=== PATIENT | male | born 1975 | race Two or more races ===

== ENCOUNTER 2017-05-16 21:52 | Emergency (ER) | payer OTHER ==
[2017-05-16 22:01] VITALS: BP 178/91
[2017-05-16] MEDS ORDERED: methylPREDNISolone 125 MG* 2 ML VIAL IV ONE (22:42)
[2017-05-16] MEDS ORDERED: diPHENhydraMINE PO* 50 MG PO ONE (22:42)
[2017-05-16] MEDS ORDERED: Famotidine TAB* 20 MG PO ONE (22:43)
[2017-05-16] MEDS ORDERED: methylPREDNISolone 125 MG* 2 ML VIAL IM ONE (22:56)
--- NOTE | 2017-06-10 15:07 | UC ---
Livia Guerra Rebecca, scribed for Vera Gross MD on 05/16/17 at 2235 . Skin Complaint HPI - HPI Summary HPI Summary: Pt is a 41 y/o M who presents to [facility] c/o diffuse rash. Sx began 2 weeks ago and have been constant since onset. Rash is characterized as pruritic with associated pain being 7/10, described as burning. Sx aggravated and alleviated by nothing, unchanged by Benadryl and calamine lotion. - History of Current Complaint Chief Complaint: UCSkin Time Seen by Provider: 05/16/17 22:31 Stated Complaint: RASH Hx Obtained From: Patient Onset/Duration: Lasting Weeks - 2 weeks, Still Present Timing: Constant Current Severity: Moderate Pain Intensity: 7 Pain Scale Used: 0-10 Numeric Location: Diffuse Character: Pruritus Aggravating: Nothing Alleviating: Nothing - Allergy/Home Medications Allergies/Adverse Reactions: Allergies Allergy/AdvReac Type Severity Reaction Status Date / Time No Known Allergies Allergy Verified 06/10/17 13:05 Home Medications: Home Medications diPHENhydraMINE PO* [Benadryl PO 25 MG TAB*] 25 mg PO Q6HR 05/16/17 [History Confirmed 06/10/17] Review of Systems Constitutional: Negative Skin: Rash - Diffuse, pruritic rash Eyes: Negative ENT: Negative Respiratory: Negative Cardiovascular: Negative Gastrointestinal: Negative Genitourinary: Negative Motor: Negative Neurovascular: Negative Musculoskeletal: Negative Neurological: Negative Psychological: Negative All Other Systems Reviewed And Are Negative: Yes PMH/Surg Hx/FS Hx/Imm Hx - Additional Past Medical History Additional PMH: Hx herniated discs Hx chronic back pain - Surgical History Surgical History: None - Family History Known Family History: Positive: Other - Kidney stones - Social History Alcohol Use: None Substance Use Type: None Smoking Status (MU): Heavy Every Day Tobacco Smoker Physical Exam Triage Information Reviewed: Yes Appearance: Well-Appearing, Well-Nourished Vital Signs: Initial Vital Signs Temp 98.5 F 05/16/17 21:57 Pulse 87 05/16/17 21:57 Resp 20 05/16/17 21:57 BP 178/91 05/16/17 21:57 Pulse Ox 99 05/16/17 21:57 Vital Signs Reviewed: Yes Eye Exam: Normal ENT Exam: Normal Neck exam: Normal Neck: Positive: Supple, Nontender Respiratory Exam: Normal Cardiovascular Exam: Normal Abdominal Exam: Normal Musculoskeletal Exam: Normal Neurological Exam: Normal Psychological Exam: Normal Skin Exam: Other - nondiaphoretic. Scattered dermatitis, raised. C/w contact and / or reactive dermatitis. No evidence cellulitis perse. Course/Dx - Course Course Of Treatment: D/w coa and tx plan with pt. Questions answered as posed. F/u pcp, routine. Seek medical attention for worse or new problems in the meantime. - Diagnoses Provider Diagnoses: Acute dermatitis Discharge - Discharge Plan Condition: Stable Disposition: HOME Patient Education Materials: Contact Dermatitis (ED) Forms: *Work Release Referrals: Matthew Horn MD [Primary Care Provider] - The documentation as recorded by the Livia gaines Rebecca accurately reflects the service I personally performed and the decisions made by me, Vera Gross MD.
== END 2017-05-16 23:09 | disposition home or self-care (01) ==
LOC: UCEAST 21:52
DX: L30.9 Dermatitis, unspecified (principal); F17.210 Nicotine dependence, cigarettes, uncomplicated
CPT/HCPCS: 96372; 99212; A9270-GY; G0463; J2930

== ENCOUNTER 2017-06-10 12:50 | Emergency (ER) | payer OTHER ==
[2017-06-10 13:10] VITALS: BP 99/66
--- NOTE | 2017-06-10 13:26 | UC ---
Skin Complaint HPI - HPI Summary HPI Summary: Patient presents with CC of poison oak diffusely over extremities and neck. He has had this before as he works outside in the [employer]. He was seen here last month for the same issue, prescribed prednisone, famotidine, triamcinolone .1% and benadryl with relief. After discontinuing the medications, the rash began to appear again. The rash is diffuse, slightly raised pruritic erythematous lesions over extremities, neck and hands. Hx of dermatitis and eczema. Symptoms worsen when exposed to poison oak. He has continued to try at home creams without relief. The lesions are diffuse, sparing the groin and face. Denies any other health problems, takes no medications. - History of Current Complaint Chief Complaint: UCSkin Time Seen by Provider: 06/10/17 13:15 Stated Complaint: RASH Hx Obtained From: Patient Onset/Duration: Gradual Onset Skin Exposure Onset/Duration: Weeks Ago Timing: Constant Onset Severity: Moderate Current Severity: Moderate Pain Intensity: 5 Pain Scale Used: 0-10 Numeric Location: Diffuse Character: Pruritus, Pain, Redness, Raised, Painful Aggravating: Nothing Alleviating: OTC Meds, Other - steroids Associated Signs & Symptoms: Positive: Negative Related History: Possible Reaction to: Environmental Exposure - Allergy/Home Medications Allergies/Adverse Reactions: Allergies Allergy/AdvReac Type Severity Reaction Status Date / Time No Known Allergies Allergy Verified 06/10/17 13:05 Review of Systems Constitutional: Negative Skin: Rash Eyes: Negative Respiratory: Negative Cardiovascular: Negative Motor: Negative Neurovascular: Negative Musculoskeletal: Negative Psychological: Negative All Other Systems Reviewed And Are Negative: Yes PMH/Surg Hx/FS Hx/Imm Hx Previously Healthy: Yes - Surgical History Surgical History: None - Social History Occupation: Employed Full-time Lives: With Family Alcohol Use: None Substance Use Type: None Smoking Status (MU): Heavy Every Day Tobacco Smoker Physical Exam Triage Information Reviewed: Yes Appearance: Well-Appearing, Well-Nourished Vital Signs: Initial Vital Signs Temp 97 F 06/10/17 13:07 Pulse 94 06/10/17 13:07 Resp 15 06/10/17 13:07 BP 99/66 06/10/17 13:07 Pulse Ox 100 06/10/17 13:07 Vital Signs Reviewed: Yes Eye Exam: Normal Eyes: Positive: Conjunctiva Clear Neck exam: Normal Neck: Positive: Supple, Nontender, No Lymphadenopathy Respiratory Exam: Normal Respiratory: Positive: Chest non-tender, Lungs clear Cardiovascular Exam: Normal Cardiovascular: Positive: RRR Musculoskeletal Exam: Normal Musculoskeletal: Positive: Strength Intact Neurological Exam: Normal Neurological: Positive: Alert Psychological: Positive: Normal Response To Family, Age Appropriate Behavior Skin: Positive: significant lesion(s) - diffusely over lower extremities, hands , neck, Other Course/Dx - Course Course Of Treatment: Patient evaluated for possible poison oak exposure. Recent exposure last month as well which improved with rx medications. He comes again today d/t another exposure and is stating he will need a refill on his medications. He is prescribed prednisone, topical creams (both triamcinalone .5% for knees and legs and upper extremities where patches are diffuse; and .1% over neck where skin is thinner); patient agrees with plan and OK for discharge. He is encouraged to follow up with his PCP regarding his eczema and dermatitis dx. - Differential Diagnoses - Skin Complaint Differential Diagnoses: Contact Dermatitis, Poison [place], Poison [place] - Diagnoses Provider Diagnoses: poison oak Discharge - Discharge Plan Condition: Stable Disposition: HOME Prescriptions: Triamcinolone 0.1% CREAM(NF) [Kenalog 0.1% Cream (NF)] 1 applic TOPICAL TID #1 applic Triamcinolone 0.5% CREAM(NF) [Triamcinolone 0.5% CREAM*] 1 applic TOPICAL TID # 1 tube predniSONE TAB* [Deltasone TAB*] 10 mg PO DAILY #20 tab Patient Education Materials: Triamcinolone (On the skin), Poison [place] (ED), Cold Compress or Soak (ED) Forms: *Work Release Referrals: Matthew Horn MD [Primary Care Provider] - Additional Instructions: Take Benadryl 25mg at bedtime Famotidine during the day time Triamcinolone .1% to neck Triamcinolone .5% to knees, hands, and extremities - sparing the face and groin area Prednisone as prescribed x 5 days - tapering dose. Take in the morning.
== END 2017-06-10 13:30 | disposition home or self-care (01) ==
LOC: UCEAST 12:50
DX: L23.7 Allergic contact dermatitis due to plants, except food (principal)
CPT/HCPCS: 99212; G0463

== ENCOUNTER → 2018-08-06 11:17 | Emergency (ER) | payer OTHER ==
[~2018-08-06 11:17] MED LIST: Lidocaine 2% EPI 1:200000 MPF*10-20 ML VIAL ONE; NS 0.9% 1000 ML* 1,000 ML IV ONE; Piperacillin/Tazobac ADVAN(*) 3.375 GM in NS 0.9% 100 ML* 100 ML IVPB ONE; Vancomycin(*) 1,000 MG BAG/ADDV IVPB ONE; Vancomycin(*) 1,250 MG in NS 0.9% 250 ML* 250 ML IVPB ONE
[2018-08-06 12:10] VITALS: BP 135/82
--- NOTE | 2018-08-06 12:25 | ED ---
Skin Complaint - HPI Summary HPI Summary: Pt. is a 42 y.o male who was referred to the ER from for possible neck abscess. Pt. denies past medical hx. He states that he noticed a small red bump on the right side of his neckk about 2 weeks ago that has progressively gotten larger. He state he took a few doses of an old antibx and it seemed to be improving until today when he noticed redness spreading to his chest wall. He admits to chills. Denies CP, SOB, N/V. Touching affected area and rotating neck makes sxs worse. Nothing makes symptoms better. Symptoms are moderate in severity. He notes hx of MRSA infections. Denies IV drug use. - History of Current Complaint Chief Complaint: EDRashSkinAbscess Time Seen by Provider: 08/06/18 11:49 Stated Complaint: ABSESS ON RT SIDE OF NECK Hx Obtained From: Patient Pain Intensity: 10 - Allergy/Home Medications Allergies/Adverse Reactions: Allergies Allergy/AdvReac Type Severity Reaction Status Date / Time latex Allergy Rash Verified 08/07/18 07:06 tomato Allergy Anaphylatic Verified 08/07/18 07:07 Shock PMH/Surg Hx/FS Hx/Imm Hx Previously Healthy: Yes Endocrine/Hematology History: Denies: Hx Diabetes, Hx Thyroid Disease Cardiovascular History: Denies: Hx Hypertension, Hx Pacemaker/ICD Respiratory History: Denies: Hx Asthma, Hx Chronic Obstructive Pulmonary Disease (COPD) GI History: Denies: Hx Ulcer Sensory History: Denies: Hx Hearing Aid Neurological History: Reports: Other Neuro Impairments/Disorders - hx of herniated discs Psychiatric History: Denies: Hx Panic Disorder Infectious Disease History: Yes Infectious Disease History: Reports: Hx of Known/Suspected MRSA Denies: Hx Clostridium Difficile, Hx Hepatitis, Hx Human Immunodeficiency Virus (HIV), Hx Shingles, Hx Tuberculosis, Hx Known/Suspected VRE, Hx Known/ Suspected VRSA, History Other Infectious Disease, Traveled Outside the [place] in Last 30 Days - Family History Known Family History: Positive: None - Pt denies FMHX - Social History Occupation: Employed Full-time Lives: With Family Alcohol Use: None Substance Use Type: Reports: None Smoking Status (MU): Heavy Every Day Tobacco Smoker Review of Systems Positive: Chills Cardiovascular: Negative Respiratory: Negative Gastrointestinal: Negative Positive: Other - redness and swelling to right side of neck All Other Systems Reviewed And Are Negative: Yes Physical Exam Triage Information Reviewed: Yes Vital Signs On Initial Exam: Initial Vitals Temp Pulse Resp BP Pulse Ox 99.9 F 39 16 146/95 92 08/06/18 11:25 08/06/18 11:25 08/06/18 11:25 08/06/18 11:25 08/06/18 11:25 Appearance: Positive: Well-Appearing - Pt. sitting on bed in NAD. Obvious mass noted to right lateral neck Skin: Positive: Warm, Dry Head/Face: Positive: Normal Head/Face Inspection Eyes: Positive: Normal, EOMI Neck: Positive: Supple, Other: - Noted to the right lateral neck there is a very large area of erythema and edema. Slightly fluctuant and tender to touch. Surrounding erythema extends to anterior chest wall. Respiratory/Lung Sounds: Positive: Clear to Auscultation, Breath Sounds Present Neurological: Positive: Normal, CN Intact II-III Diagnostics - Vital Signs Vital Signs Temp Pulse Resp BP Pulse Ox 08/06/18 12:00 102 98 08/06/18 11:49 135/82 08/06/18 11:48 92 97 08/06/18 11:25 99.9 F 39 16 146/95 92 - Laboratory Lab Statement: Any lab studies that have been ordered have been reviewed, and results considered in the medical decision making process. Course/Dx - Course Course Of Treatment: Pt. presenting with an impressive likely abscess and cellulitis to his lateral neck. Low grade fever. Pt. overall is nontoxic appearing. After initially examining pt. I informed him he will need blood work , imaging, IV antibx and admission to the hospital for likely surgical consult. Pt. states that he is the only one in family with a car and his kids need picked up from school. Pt. states he will need to leave to give his car to another family/friend. Pt. wishes to sign out AMA. Discussed with pt. that this infection could lead to sepsis, air way compromise and . Pt. has decision making capacity and understands the risk. Pt. states that he will return later today for treatment once he gets his matters in order. Signed out AMA. - Differential Diagnoses - Skin Complaint Differential Diagnoses: Abscess, Cellulitis, MRSA - Diagnoses Provider Diagnoses: Cellulitis and abscess of neck Discharge - Sign-Out/Discharge Documenting (check all that apply): Patient Departure - Discharge Plan Condition: Stable Disposition: AGAINST MEDICAL ADVICE Referrals: Matthew Horn MD [Primary Care Provider] - - Billing Disposition and Condition Condition: STABLE Disposition: Against Medical Advice
== END | disposition left against medical advice (07) ==
LOC: ED 11:17
DX: L03.221 Cellulitis of neck (principal); Z53.21 Procedure and treatment not carried out due to patient leaving prior to being seen by health care provider
CPT/HCPCS: 93005; 96361; 96374; 99283; J2543; J3370

== ENCOUNTER 2018-08-06 16:32 | Observation (INO) | payer OTHER ==
[2018-08-06] MEDS ORDERED: Ketorolac INJ* 30 MG/ML 1 ML VIAL IV PUSH ONE (17:46)
[2018-08-06] MEDS ORDERED: Morphine VIAL* 4 MG/ML VIAL (1 ml vial) IV ONE (17:46)
[2018-08-06] MEDS ORDERED: NS 0.9% 1000 ML* 2,000 ML IV ONE (17:47)
[2018-08-06] MEDS ORDERED: Morphine INJ* 4 MG/ML 1 ML SYRINGE (NEW SYRINGE VERSION) ONE (18:01)
[2018-08-06 18:07] LABS: ABS Basophils 0 10^3/ul (0-0.2); ABS Eosinophils 0.2 10^3/ul (0-0.6); ABS Lymphocytes 0.9 10^3/ul (1.0-4.8); ABS Monocytes 1.1 10^3/ul (0-0.8); ABS Nucleated RBC 0 10^3/ul; Eosinophil % 1.9 % (0-6); Hematocrit 40 % (42-52); Hemoglobin 13.8 g/dl (14.0-18.0); Lymphocyte % 8.9 % (25-47); Mean Corpuscular HGB Conc 34 g/dl (31-36); Mean Corpuscular Hemoglobin 33 pg (27-31); Mean Corpuscular Volume 95 fL (80-94); Mean Platelet Volume 7.9 um3 (7.4-10.4); Nucleated Red Blood Cells % 0; Platelet Count 279 10^3/ul (150-450); Red Blood Count 4.22 10^6/ul (4.00-5.40); Red Cell Distribution Width 14 % (10.5-15); White Blood Count 10.1 10^3/ul (3.5-10.8)
[2018-08-06 18:23] LABS: EGFR Non-African American 85.5 (>60)
[2018-08-06] MEDS ORDERED: Vancomycin(*) 1,000 MG in NS 0.9% 250 ML* 250 ML IVPB ONE (18:47)
[2018-08-06] MEDS ORDERED: cefTRIAXone(*) 1 GM in NS 0.9% 50 ML* 50 ML IVPB ONE (18:47)
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
--- NOTE | 2018-08-06 19:10 | RAD ---
EXAM: US Soft Tissues Head and Neck, Thyroid CLINICAL HISTORY: 42 years old, male; Pain; Neck pain; Additional info: Severe cellulitis r neck, ? abscessed TECHNIQUE: Real-time ultrasound scan of the thyroid gland and soft tissues of the neck with image documentation. COMPARISON: No relevant prior studies available. FINDINGS: Left thyroid lobe: Unremarkable. No enlarged or calcified nodules. Right thyroid lobe: Unremarkable. No enlarged or calcified nodules. Isthmus: Unremarkable. No enlarged or calcified nodules. Lymph nodes: Unremarkable. No lymphadenopathy. Other findings: Complex apparent fluid collection measuring approximately 6.1 x 2.4 x 3.1 cm right lateral neck with some surrounding hyperemia suggesting abscess. Underlying lesion is not excluded here. IMPRESSION: Complex apparent fluid collection measuring approximately 6.1 x 2.4 x 3.1 cm right lateral neck with some surrounding hyperemia suggesting abscess. Underlying lesion is not excluded here. To contact [facility] with a general question: [facility] - [phone] For direct physician to physician contact: Physician Hotline - [phone] [facility] ([facility] Facility ID #[id number])
[2018-08-06] MEDS ORDERED: Acetaminophen TAB* 325 MG PO PRN (20:00)
[2018-08-06] MEDS ORDERED: Morphine INJ* 4 MG/ML 1 ML SYRINGE (NEW SYRINGE VERSION) IV PRN (20:01)
[2018-08-06] MEDS ORDERED: Ondansetron INJ* 2 MG/ML VIAL IV PRN (20:01)
[2018-08-06] MEDS ORDERED: oxyCODONE/Acetamin 5/325 MG* TAB PO PRN (20:02)
--- NOTE | 2018-08-06 21:24 | HP ---
HOSPITAL MEDICINE HISTORY AND PHYSICAL: DATE OF ADMISSION: 08/06/18 PRIMARY CARE PHYSICIAN: Dr. Matthew Horn. ATTENDING PHYSICIAN: Dr. Luzma Goodman * (dictation provided by Nadine Aburto NP ). CHIEF COMPLAINT: Right neck pain. HISTORY OF PRESENT ILLNESS: Mr. Monet is a 42-year-old male with a past medical history of MRSA and chronic back pain, who presents today to the hospital with concern for swelling, redness, and pain to his right neck. Mr. Monet states that these symptoms began about 2 weeks ago. He notes no trauma to the area. He sees no drainage from the area. His symptom has been enlarging knot to the right side of his neck that was very firm to palpation. It has associated erythema, which has been progressively increasing as has the pain. The patient presented to the urgent care and then to our emergency room today for evaluation. He denies any fevers at home. He has had no chest pain, no shortness of breath. He has been eating and drinking normally. He is having no difficulty swallowing, no difficulty breathing. In the emergency room, Mr. Monet was suspected to have a right neck abscess. He went on for a soft tissue ultrasound, which showed that there was a 6 x 2 x 3 cm right lateral neck fluid collection suspicious for an abscess. The ED physician was uncomfortable because of the location; therefore, Surgery has been consulted regarding incision and drainage. The patient is not septic. He has no leukocytosis, but does have tachycardia with a heart rate of 100 to 120. His blood pressure is in the 130s. PAST MEDICAL HISTORY: 1. History of MRSA to his legs. 2. History of chronic back pain after an accident. MEDICATIONS: No active current medications. ALLERGIES: No known drug allergies. FAMILY HISTORY: The patient reports his mother is alive and has history of emphysema related to long-term smoking. Father related to heart attack. SOCIAL HISTORY: The patient is pack-a-day smoker. He drinks alcohol once in a while. He denies any IV drug use. He states he does smoke marijuana occasionally. He states that his domestic female partner, Yuni, would be his healthcare proxy. REVIEW OF SYSTEMS: A 14-point review of systems was completed with Mr. Monet and all those not mentioned above were negative. PHYSICAL EXAMINATION GENERAL: Mr. Monet is sitting up in the bed. He is in no acute distress. VITAL SIGNS: Temperature 99.2, pulse rate 102, respiratory rate 24, O2 saturation 98% on room air, blood pressure 133/82. LUNGS: Clear to auscultation bilaterally with no accessory muscle use and good aeration. HEART: S1, S2. No murmur, rub, or gallop, and regular. ABDOMEN: Soft, nontender with bowel sounds positive x4. EXTREMITIES: No cyanosis. No edema. NEURO: He is alert. He is oriented x3. He moves all extremities equally. There is no facial asymmetry or focal weakness. Extraocular movements are intact. SKIN: The patient has swelling and erythema to his right lateral neck. The area is indurated and firm. There is erythema extending about group home up the neck and then down the chest and around the right nipple. This area has been demarcated with black line by nursing staff. DIAGNOSTIC STUDIES/LAB DATA: Again, the soft tissue ultrasound is read as follows: "Complex apparent fluid collection measuring approximately 6.1 x 2.4 x 3.1 cm right lateral neck with some surrounding hyperemia suggesting abscess. Underlying lesion is not excluded here." The patient's labs are as follows: Sodium 134, potassium 3.8, chloride 98, serum bicarbonate 29, BUN 11, creatinine 0.96, glucose 93. WBC is 7.1, hemoglobin 13.8, hematocrit 40, platelet count 279. Lactic acid 0.5. ASSESSMENT AND PLAN: Mr. Monet is a 42-year-old male with past medical history of methicillin-resistant Staphylococcus aureus infection to his leg, who presents today to the hospital with concern for an abscess to his right neck suspicious for methicillin-resistant Staphylococcus aureus infection. Our plans are for observation in the hospital for the followin. Sepsis secondary to right neck abscess. Dr. Acosta has been consulted from the surgical services team and he will be providing incision and drainage today. We will obtain a culture from that for Gram stain. The patient will be on clindamycin intravenously for IV antibiotic coverage given his history of methicillin-resistant Staphylococcus aureus and the fact that he has an abscess , this is very likely to be methicillin-resistant Staphylococcus aureus. We can broaden antibiotic coverage or amend it as necessary based on culture results. Again, the patient meets sepsis with minimal criteria of elevated respiratory rate and elevated heart rate. He has received intravenous fluids and antibiotics in the ED. We will continue with intravenous fluids. He is not hypotensive and his lactic acid is normal. The patient will have pain medication with oxycodone p.r.n. 2. DVT prophylaxis with SCDs. 3. Code status is full code. 4. Disposition: To medical floor. TIME SPENT: Approximately 60 minutes was spent on the admission of this patient , more than half the time spent with him at the bedside reviewing the events leading up to this hospitalization, performing the physical examination, and reviewing my plan of care. NADINE ABURTO, [place] [id number]/CPS #: [id number] [facility]
[2018-08-06] MEDS: NS 0.9% 1000 ML* 1,000 ML IV SCH (22:22)
[2018-08-06] MEDS: Clindamycin 600 MG IVPREMIX(* 600 MG/50 ML SDV IV SCH (22:25)
[2018-08-06 22:30] LABS: Urine Appearance Clear; Urine Blood Negative (Negative); Urine Color Yellow; Urine Ketones Trace (Negative); Urine Protein Negative (Negative); Urine Specific Gravity 1.014 (1.010-1.030); Urine Urobilinogen Positive (Negative)
[2018-08-06] MEDS: oxyCODONE/Acetamin 5/325 MG* TAB PO PRN (22:30)
[2018-08-06] MEDS: Morphine VIAL* 4 MG/ML VIAL (1 ml vial) IV PRN (23:49)
[2018-08-07] MEDS: Clindamycin 600 MG IVPREMIX(* 600 MG/50 ML SDV IV SCH ×4 (04:19→22:07)
[2018-08-07] MEDS: Morphine VIAL* 4 MG/ML VIAL (1 ml vial) IV PRN ×4 (06:05→22:07)
[2018-08-07 07:36] LABS: EGFR Non-African American 108.6 (>60)
[2018-08-07] MEDS: oxyCODONE/Acetamin 5/325 MG* TAB PO PRN ×3 (08:06→19:18)
[2018-08-07 08:11] LABS: ABS Basophils 0 10^3/ul (0-0.2); ABS Eosinophils 0.2 10^3/ul (0-0.6); ABS Lymphocytes 0.6 10^3/ul (1.0-4.8); ABS Monocytes 0.9 10^3/ul (0-0.8); ABS Neutrophils 5.1 10^3/ul (1.5-7.7); ABS Nucleated RBC 0 10^3/ul; Eosinophil % 2.6 % (0-6); Hematocrit 39 % (42-52); Hemoglobin 13.1 g/dl (14.0-18.0); Lymphocyte % 9.3 % (25-47); Mean Corpuscular HGB Conc 34 g/dl (31-36); Mean Corpuscular Hemoglobin 32 pg (27-31); Mean Corpuscular Volume 95 fL (80-94); Mean Platelet Volume 7.7 um3 (7.4-10.4); Nucleated Red Blood Cells % 0; Platelet Count 238 10^3/ul (150-450); Red Blood Count 4.06 10^6/ul (4.00-5.40); Red Cell Distribution Width 13 % (10.5-15); White Blood Count 6.8 10^3/ul (3.5-10.8)
[2018-08-07] MEDS ORDERED: Mouth Piece, Nicotine* 1 EACH CARTRIDGE INH PRN ×2 (08:14)
--- NOTE | 2018-08-07 10:00 | PN ---
Progress Note - Progress Note Date of Service: 08/07/18 SOAP: Subjective:pod#1 s/p I&D right neck abscess less pain since drained but still quite tender [] Objective:afeb;VSS;right neck with open wound draining pus,erythematous and indurated;tender wound irrigated with NS,packed with 1/4" plain nugauze and covered with sterile 4x4s gm stain:negative MRSA,GM+cocci,GM-coccobacilli,GM-bacilli wound C&S pending WBC 6.8(down from 10.1) [] Assessment:right neck abscess opened and drained 08/06/18 [] Plan:continue IV abx per Hosp,await wound C&S,likely discharge by Hosp 08/08/18; repack wound as above before discharge;followup appt at [facility] Friday08/10/18 at 10:45am []
[2018-08-07] MEDS: Nicotine Inhaler* 10 MG AMP INH PRN ×3 (10:12→19:21)
[2018-08-07] MEDS ORDERED: Nicotine PATCH 21 MG/24 HR* PATCH ONE (10:18)
[2018-08-07] MEDS: Nicotine PATCH 21 MG/24 HR* PATCH TRANSDERM SCH (10:20)
--- NOTE | 2018-08-07 17:14 | PN ---
Subjective Date of Service: 08/07/18 Interval History: Patient was seen and examined earlier today. Reports feeling better, still with some "bloody drainage" from wound, but minimal pain. Denies fever or chills. Has been ambulatory, would like a nicotine supplement for cravings. He has no new complaints today. Family History: Unchanged from Admission Social History: Unchanged from Admission Past Medical History: Unchanged from Admission Objective Active Medications: Acetaminophen (Tylenol Tab*) 650 mg PO Q6H PRN PRN Reason: pain/fever Device (Nicotine Mouth Piece*) 1 each INH .USE WITH NICOTROL PRN PRN Reason: CRAVING Last Admin: 08/07/18 10:12 Dose: 1 each Clindamycin HCl/Dextrose (Cleocin 600 Mg Ivpremix(*) Sdv) 600 mg in 50 mls @ 100 mls/hr IV Q6H [facility] Last Admin: 08/07/18 16:27 Dose: 100 mls/hr Sodium Chloride (Ns 0.9% 1000 Ml*) 1,000 mls @ 75 mls/hr IV PER RATE [facility] Last Admin: 08/06/18 22:22 Dose: 75 mls/hr Morphine Sulfate (Morphine Vial*) 4 mg IV Q4H PRN PRN Reason: PAIN Last Admin: 08/07/18 16:27 Dose: 4 mg Nicotine (Nicotine Inhaler*) 10 mg INH Q2H PRN PRN Reason: CRAVING Last Admin: 08/07/18 13:14 Dose: 10 mg Nicotine (Nicotine Patch 21 Mg/24 Hr*) 1 patch TRANSDERM DAILY@0800 [facility] Last Admin: 08/07/18 10:20 Dose: 1 patch Ondansetron HCl (Zofran Inj*) 4 mg IV Q6H PRN PRN Reason: NAUSEA Oxycodone/Acetaminophen (Percocet 5/325 Tab*) 1 tab PO Q4H PRN PRN Reason: PAIN Oxycodone/Acetaminophen (Percocet 5/325 Tab*) 2 tab PO Q4H PRN PRN Reason: PAIN Last Admin: 08/07/18 12:28 Dose: 2 tab Pharmacy Profile Note (Nicotine Patch Removal Note*) 1 note PATCH OFF 2100 [facility] Vital Signs - 8 hr 08/07/18 08/07/18 08/07/18 10:11 11:15 11:16 Temperature 97.9 F Pulse Rate 75 Respiratory 20 16 16 Rate Blood Pressure 121/62 (mmHg) O2 Sat by Pulse 98 Oximetry 08/07/18 08/07/18 08/07/18 12:28 14:40 15:32 Temperature 97.9 F Pulse Rate 73 Respiratory 18 16 16 Rate Blood Pressure 121/72 (mmHg) O2 Sat by Pulse 99 Oximetry 08/07/18 16:27 Temperature Pulse Rate Respiratory 16 Rate Blood Pressure (mmHg) O2 Sat by Pulse Oximetry Oxygen Devices in Use Now: None Appearance: Appears comfortable and in NAD. Eyes: No Scleral Icterus, PERRLA Ears/Nose/Mouth/Throat: Clear Oropharnyx, Mucous Membranes Moist Neck: NL Appearance and Movements; NL JVP, Trachea Midline, - - Right posterior neck with an I&D site noted, moderate surrounding induration and erythema. Small amount of purlent discharge noted, no active bleeding. No cervical adenopathy. Respiratory: Symmetrical Chest Expansion and Respiratory Effort, Clear to Auscultation Cardiovascular: NL Sounds; No Murmurs; No JVD, RRR Extremities: No Edema Neurological: Alert and Oriented x 3 Nutrition: Taking PO's Result Diagrams: 08/07/18 07:49 08/07/18 07:09 Additional Lab and Data: Lab Results 08/06/18 08/06/18 08/06/18 Range/Units 17:55 17:55 17:55 WBC 10.1 (3.5-10.8) 10^3/ul RBC 4.22 (4.00-5.40) 10^6/ul Hgb 13.8 L (14.0-18.0) g/dl Hct 40 L (42-52) % MCV 95 H (80-94) fL MCH 33 H (27-31) pg MCHC 34 (31-36) g/dl RDW 14 (10.5-15) % Plt Count 279 (150-450) 10^3/ul MPV 7.9 (7.4-10.4) um3 Neut % (Auto) 78.5 (38-83) % Lymph % (Auto) 8.9 L (25-47) % [place] % (Auto) 10.4 H (0-7) % Eos % (Auto) 1.9 (0-6) % Baso % (Auto) 0.3 (0-2) % Absolute Neuts (auto) 8.0 H (1.5-7.7) 10^3/ul Absolute Lymphs (auto) 0.9 L (1.0-4.8) 10^3/ul Absolute Monos (auto) 1.1 H (0-0.8) 10^3/ul Absolute Eos (auto) 0.2 (0-0.6) 10^3/ul Absolute Basos (auto) 0 (0-0.2) 10^3/ul Absolute Nucleated RBC 0 10^3/ul Nucleated RBC % 0 Sodium 134 L (135-145) mmol/L Potassium 3.8 (3.5-5.0) mmol/L Chloride 98 L (101-111) mmol/L Carbon Dioxide 29 (22-32) mmol/L Anion Gap 7 (2-11) mmol/L BUN 11 (6-24) mg/dL Creatinine 0.96 (0.67-1.17) mg/dL Est GFR ( Amer) 103.4 (>60) Est GFR (Non-Af Amer) 85.5 (>60) BUN/Creatinine Ratio 11.5 (8-20) Glucose 93 (70-100) mg/dL Lactic Acid 0.5 (0.5-2.0) mmol/L Calcium 9.4 (8.6-10.3) mg/dL Total Bilirubin 0.90 (0.2-1.0) mg/dL AST 27 (13-39) U/L ALT 29 (7-52) U/L Alkaline Phosphatase 97 (34-104) U/L Total Protein 7.6 (6.4-8.9) g/dL Albumin 4.4 (3.2-5.2) g/dL Globulin 3.2 (2-4) g/dL Albumin/Globulin Ratio 1.4 (1-3) Microbiology and Other Data: Microbiology 08/06/18 21:40 Skin and Soft Tissue MRSA/MSSA (PCR - Final Neck Mrsa Negative S.aureus Negative Gram Stain - Final Wound Culture - Preliminary Streptococcus Anginosus Diagnostic Imaging: Patient Name: COSTA ACOSTA Medical Record#: [id number] Ordering Physician: Kuldip Britt MD Acct.#: [id number] : 1975 Age: 42 Sex: M Location: EMERGENCY DEPARTMENT Exam Date: 08/06/181744 ADM Status: REG ER Order Information: US SOFT TISSUE HEAD OR NECK Accession Number: [id number] CPT: 49934 EXAM: US Soft Tissues Head and Neck, Thyroid IMPRESSION: Complex apparent fluid collection measuring approximately 6.1 x 2.4 x 3.1 cm right lateral neck with some surrounding hyperemia suggesting abscess. Underlying lesion is not excluded here. <Electronically signed by Mika Montes MD in OV> 08/06/181909 EKG Data: . Assess/Plan/Problems-Billing Assessment: A 42 y/o male with PMH significant for MRSA infection to his leg, presented to ED with right posterior neck abscess, s/p incision and drainage with wound packing. - Patient Problems (1) Cellulitis and abscess of neck Current Visit: Yes Status: Acute Comment: - Improving after I&D with wound packing, appreciate surgical assistanace. - Continue Clindamycine pending finalized C&S report - Wound MRSA and Staph aureus negative, positive for strept anginosus - Continue wound packing - Will benefit from an additional day of IV Abx, awaiting sensitivity report for proper PO Abx coverage upon discharge. (2) Sepsis Current Visit: Yes Status: Acute Comment: - Secondary to neck cellulitis and abscess - Improving after IVF hydration in ED (3) Nicotine dependence Current Visit: Yes Status: Acute Comment: - Nicotine patch and inhaler provided - encourage cessation upon discharge (4) DVT prophylaxis Current Visit: Yes Status: Acute Comment: - SCDs (5) Full code status Current Visit: Yes Status: Acute Status and Disposition: Observation for another night on IV Abx. Anticipate discharge to home tomorrow.
--- NOTE | 2018-08-07 18:37 | OP ---
CC: Dr. Parminder Rowan * DATE OF OPERATION: 08/06/18 - ROOM #414 DATE OF : [birth year] SURGEON: Mika Acosta MD CHIEF COMPLIANT: Pain of right neck. OPERATIVE PROCEDURE: Incision and drainage of the right neck abscess INDICATIONS: Mr. Monet is a 42-year-old who has noticed increasing pain and swelling of his right neck. He had an MRSA infection of his calf sometime in the past, he does not know how this thing came on but it has been coming on gradually over the last couple of weeks and now he has intense pain in the area. He has not been having fever or chills. 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 He is otherwise reasonably fit and healthy. FINDINGS: On examination, he is a well-developed, well-nourished, muscular young man. He does not appear acutely ill. He is afebrile. Skin is warm and well perfused. In the right neck in the region in roughly the supraclavicular fossa, there is an area of erythema and tenderness and induration. The erythema extends over approximately 5 x 10 cm. The area of induration and tenderness is only a few centimeters smaller. There is a central area that feels slightly fluctuant. I reviewed his ultrasound, which is suspicious for abscess and his laboratory studies show a normal white blood count, a little bit of left shift. Lactic acid is normal. I discussed with him. It was decided that incision and drainage of the right neck abscess would be carried out. DESCRIPTION OF PROCEDURE: Therefore, the area was prepped with antiseptic and draped in sterile fashion. Local infiltrative anesthesia was administered 1% lidocaine and then needle was used to aspirate in the area of the abscess, a little bit of pus was obtained and therefore an incision of 2 cm was created and thick creamy pus was obtained. This was not particularly odorous. It was sampled for culture and the wound was probed until with reasonable confidence that there was no undrained collections. The corner of a 4x4 gauze was packed into the wound and then a bulky gauze dressing was placed. He tolerated this well. A bandage was placed and he will be admitted to the hospitalist service for antibiotics. [id number]/[facility] #: [id number] [facility]
[2018-08-07] MEDS: NS 0.9% 1000 ML* 1,000 ML IV SCH (19:19)
[2018-08-07] MEDS ORDERED: Nicotine Patch Removal NOTE PATCH OFF SCH (21:00)
[2018-08-08] MEDS: oxyCODONE/Acetamin 5/325 MG* TAB PO PRN ×2 (03:21→09:50)
[2018-08-08] MEDS: Clindamycin 600 MG IVPREMIX(* 600 MG/50 ML SDV IV SCH ×2 (03:22→09:50)
[2018-08-08] MEDS: Morphine VIAL* 4 MG/ML VIAL (1 ml vial) IV PRN (08:10)
[2018-08-08] MEDS: Nicotine Inhaler* 10 MG AMP INH PRN (08:10)
[2018-08-08] MEDS: Nicotine PATCH 21 MG/24 HR* PATCH TRANSDERM SCH (08:10)
[2018-08-08 08:18] VITALS: BP 121/81
--- NOTE | 2018-08-08 23:34 | DS ---
DISCHARGE SUMMARY: DATE OF ADMISSION: 08/06/18 DATE OF DISCHARGE: 08/08/18 PATIENT OF ADMITTING HOSPITALIST: Dr. Luzma Goodman. ATTENDING HOSPITALIST WHILE PATIENT HERE: Dr. Elizabeth Reyes.* (DICTATED BY SHAKA MEJIA) ADMISSION DIAGNOSES: 1. History of MRSA. 2. Right neck abscess and cellulitis. 3. History of back pain. 4. Tobacco abuse. DISCHARGE DIAGNOSES: 1. History of MRSA. 2. Right neck abscess and cellulitis. 3. History of back pain. 4. Tobacco abuse. CONSULTATION: Dr. Acosta. PROCEDURE: Incision and drainage of right posterior neck abscess on 08/06/18. HISTORY OF PRESENT ILLNESS: Mr. Monet is a 42-year-old male with past medical history significant for MRSA infection to his lower leg as well as chronic back pain, who presented to the emergency room on 08/06/18 with concern for swelling and redness of his right neck. The patient notes that his symptoms started roughly 2 weeks ago without any history of trauma to the area. He had noticed no drainage or bleeding. The area has gotten progressively bigger despite use of antibiotics. He was noted to have right neck abscess on examination and ultrasound was done that confirmed the findings showing soft tissue fluid filled mass 6 x 2 x 3 cm on the lateral neck. Given its location, it was felt that surgical consult was appropriate for which Dr. Acosta was called and presented to the emergency room where he had incision and drainage of the right neck abscess on that same night. The patient had laboratory workup that revealed no leukocytosis; however, he did have tachycardia with heart rate 100 to 120 for which he was admitted with sepsis secondary to right neck abscess. The patient received clindamycin for coverage of probable MRSA infection. HOSPITAL COURSE: The patient was admitted under hospitalist services and continued his IV clindamycin. He was seen by surgical team on the next day where his wound was packed and noticed to have minimal purulent discharge. Wound cultures were done that came back negative for MRSA and staph aureus; however, it was positive for Streptococcus anginosus. It was felt that the patient will need an additional day of IV antibiotics awaiting sensitivity report. The sensitivity report came back next day showing good coverage using clindamycin for which plan was made for him to be discharged home on oral clindamycin. He continued to clinically improve and had repeated laboratory workup on the next day that showed resolved leukocytosis. He had no fever and he was ambulatory out of bed. He was given nicotine patch and inhaler and was advised to seek smoking cessation and was given the 1800 for [facility] Quit Line. The patient will be discharged home today and will follow up with his [facility] on Friday for packing change and wound recheck. DISCHARGE MEDICATIONS: Include: 1. Acetaminophen 650 mg p.o. q.6 hours as needed for fever or pain. 2. Clindamycin 600 mg p.o. t.i.d. x7 days. 3. Percocet 5/325 two tablets p.o. q.6 hours as needed for pain. SHAKA MEJIA [id number]/[facility] #: [id number] MTDD
== END 2018-08-08 10:37 | disposition home or self-care (01) ==
LOC: ED 16:32 → MED 19:57
PROVIDERS: ADMIT Internal Medicine; ATTEND Internal Medicine
DX: L02.11 Cutaneous abscess of neck (principal); L03.90 Cellulitis, unspecified; F17.210 Nicotine dependence, cigarettes, uncomplicated; Z86.14 Personal history of Methicillin resistant Staphylococcus aureus infection; R21 Rash and other nonspecific skin eruption
CPT/HCPCS: 36415; 76536; 80048; 80053; 81003; 83605; 85025; 87040; 87070; 87077; 87186; 87205; 87640; 87641; 96365; 96366; 96375; 96376; 99283; A9270-GY; G0378; J0696; J1885; J2270; J3370